=== PATIENT | female | born 1955 | race Caucasian/White ===

== ENCOUNTER 2019-01-14 14:35 | Inpatient (IN) | payer OTHER ==
[~2019-01-14] VITALS: Ht 170.2 cm; Wt 74.0 kg
[2019-01-14 15:58] LABS: CALCIUM 8.7 mg/dL (8.5-10.1); CARBON DIOXIDE 21.6 mmol/L (21-32); CHLORIDE SERUM 101 mmol/L (98-107); GFR1 59 mL/min; GLUCOSE SERUM 131 mg/dL (74-106); POTASSIUM SERUM 3.8 mmol/L (3.5-5.1); SODIUM SERUM 136 mmol/L (136-145)
[2019-01-14 15:59] LABS: PLATELET COUNT 301 x10^3mcL (130-400)
[2019-01-14 16:03] LABS: ALBUMIN 3.4 g/dL (3.4-5.0); ALKALINE PHOSPHATASE 107 U/L (46-116); ALT/SGPT 50 U/L (14-59); AST/SGOT 27 U/L (15-37); BILIRUBIN TOTAL 0.3 mg/dL (0.20-1.00); TOTAL PROTEIN, SERUM 7.2 g/dL (6.4-8.2)
[2019-01-14 16:56] LABS: MAGNESIUM 2.2 mg/dL (1.8-2.4); PHOSPHOROUS 4.1 mg/dL (2.5-4.9)
[2019-01-14] MEDS ORDERED: RISPERDAL0.25 MG (17:14)
[2019-01-14] MEDS ORDERED: OLANZAPINE10 MG PO (17:14)
[2019-01-14 20:30] VITALS: BP 139/80
[2019-01-15 05:49] VITALS: BP 122/51
[2019-01-15 06:47] LABS: CALCIUM 8.4 mg/dL (8.5-10.1); CARBON DIOXIDE 25.2 mmol/L (21-32); CHLORIDE SERUM 105 mmol/L (98-107); CREATININE SERUM 0.8 mg/dL (0.6-1.0); GFR1 > 60 mL/min; GLUCOSE SERUM 102 mg/dL (74-106); MAGNESIUM 1.9 mg/dL (1.8-2.4); PHOSPHOROUS 3.3 mg/dL (2.5-4.9); POTASSIUM SERUM 3.9 mmol/L (3.5-5.1); SODIUM SERUM 140 mmol/L (136-145)
[2019-01-15 07:40] LABS: BASOPHIL % 0.7 % (0-2); PLATELET COUNT 289 x10^3mcL (130-400); RED CELL DISTRIBUTION WIDTH 13.6 % (11.5-14.5)
[2019-01-15 08:24] VITALS: BP 125/45
[2019-01-15 10:13] LABS: microscopic required? NO
[2019-01-15 10:25] LABS: UA SPECIFIC GRAVITY 1.015 (1.005-1.035); urine erythrocyte NEGATIVE (NEGATIVE)
[2019-01-15 10:38] LABS: AMPHETAMINE QUAL UR NONE DETECTED (See below)
[2019-01-15 17:27] VITALS: BP 134/63
[2019-01-15 22:03] VITALS: BP 133/63
[2019-01-16 05:49] VITALS: BP 115/52
[2019-01-16 06:50] LABS: BASOPHIL % 0.5 % (0-2); PLATELET COUNT 278 x10^3mcL (130-400); RED CELL DISTRIBUTION WIDTH 13.4 % (11.5-14.5)
[2019-01-16 07:16] LABS: CALCIUM 8.3 mg/dL (8.5-10.1); CARBON DIOXIDE 25.3 mmol/L (21-32); CHLORIDE SERUM 103 mmol/L (98-107); CREATININE SERUM 0.9 mg/dL (0.6-1.0); GFR1 > 60 mL/min; GLUCOSE SERUM 101 mg/dL (74-106); MAGNESIUM 1.8 mg/dL (1.8-2.4); PHOSPHOROUS 3.6 mg/dL (2.5-4.9); POTASSIUM SERUM 3.4 mmol/L (3.5-5.1); SODIUM SERUM 136 mmol/L (136-145)
[2019-01-16 09:15] VITALS: BP 140/62
[2019-01-16 15:29] VITALS: Ht 170.2 cm; Wt 74.0 kg
[2019-01-16 17:57] VITALS: BP 133/58
[2019-01-16 22:17] VITALS: BP 112/55
[2019-01-17 06:47] VITALS: BP 134/53
[2019-01-17 08:19] VITALS: BP 136/64
[2019-01-17 08:30] LABS: BASOPHIL % 0.8 % (0-2); PLATELET COUNT 287 x10^3mcL (130-400); RED CELL DISTRIBUTION WIDTH 13.5 % (11.5-14.5)
[2019-01-17 08:33] LABS: CALCIUM 8.7 mg/dL (8.5-10.1); CARBON DIOXIDE 27.2 mmol/L (21-32); CHLORIDE SERUM 103 mmol/L (98-107); CREATININE SERUM 0.9 mg/dL (0.6-1.0); GFR1 > 60 mL/min; GLUCOSE SERUM 97 mg/dL (74-106); POTASSIUM SERUM 3.7 mmol/L (3.5-5.1); SODIUM SERUM 138 mmol/L (136-145)
[2019-01-17 16:11] VITALS: BP 128/56
[2019-01-18 06:23] VITALS: BP 123/69
[2019-01-18 10:00] VITALS: BP 156/87
[2019-01-18 14:00] VITALS: BP 147/89
[2019-01-18 18:00] VITALS: BP 113/50
[2019-01-18 21:45] VITALS: BP 113/49
[2019-01-19 06:36] VITALS: BP 137/64
[2019-01-19 08:10] LABS: CALCIUM 8.9 mg/dL (8.5-10.1); CARBON DIOXIDE 23.2 mmol/L (21-32); CHLORIDE SERUM 106 mmol/L (98-107); CREATININE SERUM 0.9 mg/dL (0.6-1.0); GFR1 > 60 mL/min; GLUCOSE SERUM 89 mg/dL (74-106); POTASSIUM SERUM 3.7 mmol/L (3.5-5.1); SODIUM SERUM 140 mmol/L (136-145)
[2019-01-19 08:48] VITALS: BP 124/62
[2019-01-19 11:14] LABS: BASOPHIL % 0.8 % (0-2); PLATELET COUNT 293 x10^3mcL (130-400); RED CELL DISTRIBUTION WIDTH 13.8 % (11.5-14.5)
[2019-01-19 18:26] VITALS: BP 140/72
[2019-01-19 21:42] VITALS: BP 147/63
[2019-01-20 03:22] VITALS: BP 117/61
[2019-01-20 06:37] LABS: BASOPHIL % 1.1 % (0-2); PLATELET COUNT 331 x10^3mcL (130-400); RED CELL DISTRIBUTION WIDTH 13.6 % (11.5-14.5)
[2019-01-20 06:55] LABS: CALCIUM 8.5 mg/dL (8.5-10.1); CHLORIDE SERUM 104 mmol/L (98-107); CREATININE SERUM 0.7 mg/dL (0.6-1.0); GFR1 > 60 mL/min; GLUCOSE SERUM 84 mg/dL (74-106); POTASSIUM SERUM 3.6 mmol/L (3.5-5.1); SODIUM SERUM 140 mmol/L (136-145)
[2019-01-20 09:18] VITALS: BP 135/68
[2019-01-20 18:20] VITALS: BP 126/57
[2019-01-20 21:42] VITALS: BP 143/55
[2019-01-21 05:17] VITALS: BP 125/66
[2019-01-21 09:29] VITALS: BP 133/70
[2019-01-21 17:59] VITALS: BP 131/81
[2019-01-22 10:06] VITALS: BP 123/79
[2019-01-22 16:03] VITALS: BP 140/79
[2019-01-23 05:30] VITALS: BP 123/68
[2019-01-23 09:13] VITALS: BP 119/65
[2019-01-24 05:59] VITALS: BP 123/62
[2019-01-24 09:30] VITALS: BP 127/67
[2019-01-24 21:39] VITALS: BP 121/73
[2019-01-25 17:55] VITALS: BP 109/58
[2019-01-26 08:34] VITALS: BP 121/60
[2019-01-26 18:10] VITALS: BP 149/63
[2019-01-26 20:44] VITALS: BP 119/48
[2019-01-28 13:11] VITALS: BP 119/48
[2019-02-01 20:02] VITALS: BP 134/67
[2019-02-03 09:44] VITALS: BP 132/92
[2019-02-03 13:15] VITALS: BP 132/92
== END 2019-02-04 15:51 | disposition home or self-care (01) | DRG 603 ==
LOC: ED 14:35 → MU 16:20
PROVIDERS: Emergency Medicine; Internal Medicine; ADMIT Family Medicine
PROC: 0H9MXZZ Drainage of Right Foot Skin, External Approach (ICD-10-PCS; principal; 2019-01-16)
DX: L03.116 Cellulitis of left lower limb (principal); F23 Brief psychotic disorder; L02.611 Cutaneous abscess of right foot; F25.0 Schizoaffective disorder, bipolar type; L03.115 Cellulitis of right lower limb; I87.8 Other specified disorders of veins; Z68.24 Body mass index [BMI] 24.0-24.9, adult; Z90.710 Acquired absence of both cervix and uterus; Z53.29 Procedure and treatment not carried out because of patient's decision for other reasons; Z91.14 Patient's other noncompliance with medication regimen
CPT/HCPCS: J0690; J1630; J2001; J2060; J2270; J2543; J3370; J7030; J7040; J7060; Q0092